=== PATIENT | female | born 1985 | race Caucasian/White ===

== ENCOUNTER → 2019-06-27 09:14 | Outpatient (CLI) | payer OTHER, SELFPAY ==
--- NOTE | 2019-06-27 09:15 | DI.US.S_ITS ---
PROCEDURE: US OB <= 14 WEEKS FETUS INDICATIONS: DATES OUTSIDE/PRIOR DATING DATA: Last menstrual period (LMP): 05/04/19. LMP-based estimated date of delivery (DEJA): 02/08/20. First dating scan (date and location): 06/27/19. Estimated date of delivery (DEJA) from first dating scan: 02/07/20. TECHNIQUE: Real-time scanning was performed of the fetus and maternal pelvic organs, with image documentation. Endovaginal scanning was also performed to better visualize the fetus and maternal ovaries. COMPARISON: None. FINDINGS: Embryo: Single living intrauterine gestation is identified measuring approximately 7 weeks and 6 days in sonographic gestational age. Haystack-rump length measures approximately 1.5 cm. heart rate measured 163 beats per minute. Normal appearance of the yolk sac. No perigestational hemorrhage identified. Measurement variability in dating: +/- 4 weeks by LMP, +/- 7 days by mean sac diameter (use before 6 weeks gestation if crown-rump length not able to be measured), +/- 5 days by crown-rump length (up to 8 weeks 6 days gestation), +/- 7 days by crown-rump length (up to 13 weeks 6 days gestation). Maternal organs: Right maternal ovary is unremarkable in appearance. Left maternal ovary contains a 2.5 cm corpus luteal cyst. There is also a 4.0 x 2.8 x 3.5 cm avascular cyst with diffuse low level internal echoes/debris. This may represent a mildly complicated cyst versus hemorrhagic cyst. Limited images through the kidneys demonstrate no hydronephrosis. IMPRESSION: 1. Single living intrauterine gestation with an estimated sonographic gestational age of approximately 7 weeks and 6 days. Recommend routine followup second trimester anatomic screening survey. 2. There is a 4.0 cm avascular cyst within the left ovary likely representing a complicated cyst versus hemorrhagic cyst. Attention can be made on followup imaging. Dictated by: David Pompa M.D. on 06/27/2019 at 11:13 Approved by: David Pompa M.D. on 06/27/2019 at 11:19
== END ==
PROVIDERS: Family Provider Family Medicine; PCP Family Medicine; Visit Provider Family Medicine
DX: Z34.81 Encounter for supervision of other normal pregnancy, first trimester (principal); Z3A.08 8 weeks gestation of pregnancy; Q50.1 Developmental ovarian cyst
CPT/HCPCS: 76801; 76817

== ENCOUNTER → 2019-07-11 12:20 | Outpatient (CLI) | payer OTHER, SELFPAY ==
[2019-07-11 13:00] LABS: Appearance Urine UA CLEAR; Bilirubin Urine UA NEGATIVE (NEGATIVE); Color Urine UA YELLOW; Glucose Urine UA NEGATIVE (Negative); Ketones Urine UA NEGATIVE (NEGATIVE); Leukocyte Esterase Urine UA NEGATIVE (NEGATIVE); Nitrite Urine UA NEGATIVE (Negative); Occult Blood Urine UA NEGATIVE (Negative); Protein Urine UA NEGATIVE (Negative); Urobilinogen Urine UA 0.2 E.U./dL (0.2); pH Urine UA 5.5 (4.5-8.0)
[2019-07-11 13:02] LABS: Add Manual Diff / Slide Review NO; Basophils Absolute Auto 0 /uL (0-100); Basophils Percent Auto 0.2 % (0-2); Eosinophils Absolute Auto 0 /uL (0-450); Eosinophils Percent Auto 0.4 % (2-4); Hematocrit 36.9 % (36-46); Hemoglobin 12.6 g/dL (12.0-16.0); Lymphocytes Absolute Auto 1300 /uL (1100-4500); Lymphocytes Percent Auto 13.6 % (25-40); Mean Corpuscular HGB Conc 34.3 % (30-36); Mean Corpuscular Hemoglobin 31.9 PG (26-34); Mean Corpuscular Volume 92.9 fL (80-100); Monocytes Absolute Auto 500 /uL (0-900); Neutrophils Absolute Auto 7600 /uL (1500-7000); Neutrophils Percent Auto 80.8 % (50-75); Platelet Count 202 X10^3/uL (150-400); Red Blood Cell Count 3.97 X10^6/uL (4.0-5.2); White Blood Cell Count 9.4 X10^3/uL (4.5-11.0)
[2019-07-11 15:43] LABS: Hepatitis B Surface Antigen NEGATIVE s/c (NEGATIVE); Rubella Antibody IgG > 350.0 IU/mL (>15)
[2019-07-11 16:00] LABS: Hep C Virus Ab w/Reflex Quant NEGATIVE s/c (NEGATIVE)
[2019-07-13 14:18] LABS: RPR Screen Nonreactive (Nonreactive)
== END ==
PROVIDERS: Family Provider Family Medicine; PCP Family Medicine; Visit Provider Family Medicine
DX: Z34.81 Encounter for supervision of other normal pregnancy, first trimester (principal)
CPT/HCPCS: 36415; 80055; 81003; 86787; 86803; 86850; 86900; 86901; 87077; 87086

== ENCOUNTER → 2019-09-30 14:49 | Outpatient (CLI) | payer OTHER, SELFPAY ==
--- NOTE | 2019-09-30 14:50 | DI.US.S_ITS ---
PROCEDURE: US OB >= 14 WEEKS FETUS INDICATIONS: ANATOMY OUTSIDE/PRIOR DATING DATA: Last menstrual period (LMP): 05/04/19. LMP-based estimated date of delivery (DEJA): 02/08/20. First dating scan (date and location): 06/27/19. Estimated date of delivery (DEJA) from first dating scan: 02/07/20. TECHNIQUE: Real-time scanning was performed of the fetus, with image documentation and biometric measurements. Endovaginal scanning: No COMPARISON: Merged with [facility], OB <= 14 WEEKS FETUS, 06/27/2019, 9:35. FINDINGS: General: A single living intrauterine gestation is present. Presentation: Breech. Placenta: Placental position is posterior, without previa. Prominent placental venous leg measuring 5.7 x 1.4 x 3.0 cm. Amniotic fluid index: 10.8 cm, normal range is 5-24 cm. heart rate: 150 beats per minute. Maternal cervical canal: 4.0 cm long. Normal lower limit is 2.5 cm. biometrics: Biparietal diameter: 20 weeks 4 days Head circumference: 21 weeks 3 days Abdominal circumference: 21 weeks Femur length: 21 weeks 3 days Estimated gestational age from initial scan: 21 weeks 3 days Composite gestational age from present scan: 21 weeks 3 days Estimated weight and percentile: 405 g; 32nd percentile Measurement variability for biometric dating: +/- 7 days from 14 weeks to 15 weeks 6 days gestation, +/- 10 days from 16 weeks to 21 weeks 6 days gestation, +/- 2 weeks from 22 weeks to 27 weeks 6 days gestation, +/- 3 weeks for 28 weeks gestation or later. weight reference: 4500 g or EFW >90/95% is considered macrosomia or large for gestational age. EFW <10% is small for gestational age. EFW 5% or less is considered intra-uterine growth restriction. Anatomic survey: Neuro: Ventricles are non-dilated at less than 10 mm. Cisterna magna is normal at 3-11 mm. Cerebellum is normal in size and morphology. Nuchal skin fold: Normal at less than 6 mm between 14-21 weeks gestational age. Face: Nose and lips, facial profile are normal. Spine: No evidence for spina bifida. Heart: 4-chambered heart is present, with normal ventricular outflow tracts. Diaphragm: Diaphragm is intact. Stomach: Left-sided stomach is present. Kidneys: No hydronephrosis. Normal is less than 5 mm in 2nd trimester, less than 7 mm in 3rd trimester. Cord: 3-vessel cord has orthotopic insertion. Bladder: Normal in size. Extremities: All 4 extremities identified. Simple left maternal ovarian cyst measuring 3.8 cm. IMPRESSION: 1. Single living IUP redemonstrated and interval growth is normal. 2. Normal anatomic survey. 3. Prominent placental venous manzo of no clinical concern. Dictated by: Rudi CHAN Interpreted: Delmar Carvajal MD on 09/30/2019 at 16:40 Approved by: Delmar Carvajal M.D. on 09/30/2019 at 17:19
== END ==
PROVIDERS: PCP Family Medicine; Visit Provider Family Medicine
DX: Z34.92 Encounter for supervision of normal pregnancy, unspecified, second trimester (principal); Z3A.21 21 weeks gestation of pregnancy
CPT/HCPCS: 76811

== ENCOUNTER → 2019-11-21 09:06 | Outpatient (CLI) | payer OTHER, SELFPAY ==
[2019-11-21 11:16] LABS: Hematocrit 31.8 % (36-46); Hemoglobin 11.2 g/dL (12.0-16.0)
[2019-11-21 11:20] LABS: GTT (PREG) 1 Hour PP 50gm Dose 101 mg/dL (76-139)
== END ==
PROVIDERS: PCP Family Medicine; Visit Provider Family Medicine
DX: Z3A.28 28 weeks gestation of pregnancy (principal)
CPT/HCPCS: 36415; 82950; 85014; 85018

== ENCOUNTER → 2020-01-13 11:56 | Outpatient (CLI) | payer OTHER, SELFPAY ==
[2020-01-14 15:23] LABS: Strep Grp B PCR POS for Grp B Strep
== END ==
PROVIDERS: PCP Family Medicine; Visit Provider Family Medicine
DX: Z34.90 Encounter for supervision of normal pregnancy, unspecified, unspecified trimester (principal); Z3A.36 36 weeks gestation of pregnancy
CPT/HCPCS: 87653

== ENCOUNTER 2020-02-15 01:09 | Inpatient (IN) | payer OTHER, SELFPAY ==
[2020-02-15 01:46] VITALS: BP 125/79
[2020-02-15 02:27] LABS: Add Manual Diff / Slide Review NO; Basophils Absolute Auto 0 /uL (0-100); Basophils Percent Auto 0.3 % (0-2); Eosinophils Absolute Auto 100 /uL (0-450); Eosinophils Percent Auto 0.6 % (2-4); Hematocrit 33.6 % (36-46); Hemoglobin 11.1 g/dL (12.0-16.0); Lymphocytes Absolute Auto 2300 /uL (1100-4500); Lymphocytes Percent Auto 17.5 % (25-40); Mean Corpuscular HGB Conc 32.9 % (30-36); Mean Corpuscular Hemoglobin 31.8 PG (26-34); Mean Corpuscular Volume 96.7 fL (80-100); Monocytes Absolute Auto 800 /uL (0-900); Monocytes Percent Auto 5.8 % (3-14); Neutrophils Absolute Auto 10000 /uL (1500-7000); Neutrophils Percent Auto 75.8 % (50-75); Platelet Count 202 X10^3/uL (150-400); Red Blood Cell Count 3.47 X10^6/uL (4.0-5.2); Red Cell Distribution Width 12.3 % (11.6-14.8); White Blood Cell Count 13.2 X10^3/uL (4.5-11.0)
[2020-02-15] MEDS: LACTATED RINGERS 1,000 ML 100 ML IV ×2 (02:35→10:21)
[2020-02-15] MEDS: PENICILLIN G POTASSIUM 5,000,000 UNIT in DEXTROSE 5% IN WATER 250 ML IV (02:35)
[2020-02-15] MEDS: PENICILLIN G POTASSIUM 3,000,000 UNIT/50 ML FROZ.PIGGY 100 UNIT IV ×2 (06:14→10:14)
--- NOTE | 2020-02-15 07:10 | PM.OBHP.1 ---
OB HPI Date/Time Date of admission: 02/15/20 Date Patient Seen: 02/15/20 Time Patient Seen: 07:05 History of Present Condition Chief complaint: LABOR : 2 Para: 1 Estimated Date of Delivery: 02/09/20 Estimated Gestational Age (weeks): 40w6d Narrative: Alesha Mcgee is a 34 year old at 40 weeks and 6 days gestation. She was get ruled for post-dates induction tomorrow. Patient arrived to the center in active labor. She states contractions picked up at about midnight. Reported good movement and denied vaginal bleeding or leaking of fluid. Good care with normal labs and ultrasounds. No complications this . History of Present care: good care, initiated at week # (10), number of visits (12) and pounds weight gain (35 lb) Dating criteria: LMP confirmed by 1st trimester US Ultrasounds: normal mid trimester US Obstetrical complications: none Medical complications: none Preadmission Labs Blood type: A (+) positive -: Antibody screen: negative, GBS status: positive, HBsAG: negative, HIV: negative and RPR/VDLR: negative -: Rubella: immune and Varicella: immune HCT: 36.9 Urine: Lactobacillus 1 hr GTT: 101 Prior (ies) History: 05/06/17 40 weeks gestation, 7 lb 6 oz female, Epidural Evaluation Evaluation Baseline heart rate: 120 Variability: Moderate (11-25) monitor accelerations: Present monitor decelerations: Absent Contraction Frequency (minutes): 3 Category of Tracing: I Cervical dilation (cm): 10 Cervical effacement (%): 100 station: 0 Laboratory results: Laboratory Tests 02/15/20 02/15/20 02:00 02:00 WBC 13.2 H RBC 3.47 L Hgb 11.1 L Hct 33.6 L MCV 96.7 MCH 31.8 MCHC 32.9 RDW 12.3 Plt Count 202 Neut % (Auto) 75.8 H Lymph % (Auto) 17.5 L [place] % (Auto) 5.8 Eos % (Auto) 0.6 L Baso % (Auto) 0.3 Neut # (Auto) 43033 H Lymph # (Auto) 2300 [place] # (Auto) 800 Eos # (Auto) 100 Baso # (Auto) 0 Blood Type A Positive Antibody Screen Negative PFSH Social History marital status: number of children: 1 household members: family lives independently: Yes education level: college occupational status: employed Smoking Status: Never smoker substance use type: does not use Meds Home Medications and Allergies Home Medications Medication Instructions Recorded Confirmed Type polyethylene glycol 3350 [Miralax] 17 gm PO QDAYP PRN #0 06/16/17 02/15/20 History hydrocortisone 2.5 % topical cream 1 applictn TOPICAL QDAYP PRN #30 08/12/19 02/15/20 Rx gram Allergies Allergy/AdvReac Type Severity Reaction Status Date / Time No Known Drug Allergies Allergy Verified 02/15/20 01:45 Exam Vital Signs (past 8 hours): Temperature 36.4? blood pressure 110/63 heart rate 63 Const General: healthy appearing and comfortable HENMT Head: normal to inspection Ears: hearing grossly normal bilaterally Nose: external nose normal Face and sinus: normal facial exam Mouth: oral mucosae normal Eyes General: appearance normal, both eyes and all related structures Neck Neck: normal visual inspection Resp Effort & Inspection: normal respiratory effort Cardio Rate: regular rate GI Other: Gravid External Female Exam: external appearance normal Manual OB Exam: dilated 10, effaced fully and station -1 and 0 Presentation: vertex Estimated Weight (lbs): 7 Amniotic Fluid: clear Back/Spine/Pelvis Back: normal to inspection Skin General: no rashes or lesions noted Extrem General: normal to inspection and no pedal edema Objective Labs Result Diagrams: 02/15/20 02:00 Labs: Laboratory Results - last 24 hr 02/15/20 02/15/20 02:00 02:00 WBC 13.2 H RBC 3.47 L Hgb 11.1 L Hct 33.6 L MCV 96.7 MCH 31.8 MCHC 32.9 RDW 12.3 Plt Count 202 Neut % (Auto) 75.8 H Lymph % (Auto) 17.5 L [place] % (Auto) 5.8 Eos % (Auto) 0.6 L Baso % (Auto) 0.3 Neut # (Auto) 54157 H Lymph # (Auto) 2300 [place] # (Auto) 800 Eos # (Auto) 100 Baso # (Auto) 0 Blood Type A Positive Antibody Screen Negative Assessment and Plan Assessment and Plan Assessment and Plan narrative: 34 year old at 40+6 weeks gestation in active labor. GBS positive and s/p 2 doses of penicillin. Comfortable with epidural Expectant management, anticipate vaginal delivery
--- NOTE | 2020-02-15 11:09 | PM.OBPRVD ---
Labor & Delivery Delivery date: 02/15/20 Intrapartal events: Ineffective Pushing (Maternal exhaustion) Delivery augmentation: rupture of membranes and pitocin (With second stage) Delivery monitor: external FHT Route of delivery: and vacuum extraction (Brought to perineum with vacuum then vacuum removed for ) L&D Laceration Description: Perineal - 2nd Degree and Vaginal - 1st Degree Delivery repair: vicryl Estimated blood loss (mL): 100 Anesthesia type: Epidural Narrative: Patient is a 34-year-old at 40 weeks and 6 days gestation who delivered via vacuum assisted vaginal delivery at 10:20 a.m. on 02/15/20. STAGE I: Labor Active labor began at midnight on 02/15/20. Patient presented in active labor and received an epidural with adequate pain control after the second epidural. heart tones were category 1 throughout stage I. Artificial rupture of membranes occurred at 7:14 a.m. with copious clear fluid. Patient was complete at 7:14 a.m.. She received to GBS prophylaxis throughout labor. STAGE II: Delivery Patient's epidural was quite dense so she had little sensation with pushing for the first hour and descent was slow. Dr. Eric, OBN, was consulted due to deep decelerations with pushing as well as maternal exhaustion with pushing and lack of descent. Ultimately the decision was made for vacuum assisted delivery due to maternal exhaustion. Dr. Eric applied the vacuum and brought infant's head to the perineum over 1 contraction. The vacuum was then removed. Patient went on to deliver over the next 2 contractions. Presentation was vertex and ROP. Infant was immediately placed on mother's abdomen. Cord was clamped and cut after 1 minutes delay. scores were 7 at one minute and 9 at five minutes. No resuscitation of the required beyond the usual drying and stimulating. was noted to have a large amount of swelling and bruising over the forehead which was present before the vacuum was applied. STAGE III: Placenta/Cord Placenta delivered at 10:23 a.m. after active management and appeared intact with a three-vessel cord. Pitocin bolus given after delivery of placenta. Fundus was firm it. A short second-degree perineal laceration was repaired in the usual fashion with good hemostasis. A first-degree vaginal laceration was repaired with good hemostasis as well. EBL: 100 mL. Needle and sponge counts were correct. The vagina was inspected and no items were left in situ. Patient was doing well with Sadia, her and at bedside. [place] Baby 1: gender: Female Presentation: vertex position: Right Occiput Posterior Placenta delivery description: Spontaneous cord vessel description: 3 Vessels score (1 min): 7 score (5 min): 9
[2020-02-15] MEDS: IBUPROFEN 600 MG TABLET PO ×2 (15:44→21:48)
[2020-02-15] MEDS: ACETAMINOPHEN 325 MG TABLET 650 MG PO ×2 (17:43→23:43)
--- NOTE | 2020-02-15 21:43 | PM.OBPRVD ---
Labor & Delivery Intrapartal events: Ineffective Pushing (Maternal exhaustion) Estimated blood loss (mL): 100 Anesthesia type: Epidural Narrative: See delivery note by Dr Sharma. I was called due to patient having severe decelerations while pushing in the 2nd stage. She had been pushing about 2-1/2 hours. On review she was having moderate decelerations and then had a severe deceleration with good recovery. When I arrived she did not have recurrence of the severe deceleration, was having some intermittent moderate decelerations and mild decelerations. FHR was 150s with moderate variability. On exam vertex was 1+ station, unclear presentation but appear to be OP and vertex somewhat asynclitic. Molding of the vertex was also noted. FHR was category 2, but since now without severe variable deceleration to moderate variability, allowed her to continue to push. She was pushing more effectively now with the epidural being less dense and bringing the vertex down well during the push. Over the next approximate 30 minutes she brought the vertex to 2+ station, with pushing head would come down to 3+. She was becoming exhausted and I offered vacuum assistance now since vertex now 2+ station, and since over 1-2 contractions FHR in 90-100s with slow recovery. However over the last few contraction she felt significant increased pressure and knowing the head was lower she desired to try little longer herself. She pushed 2-3 contractions herself and then decided she did desire vacuum assistance. Her bladder had already been sterilely drained by Dr. Sharma a few contractions prior. On repeat exam vertex palpated 2+ station, I felt she had rotated to TRACY at this time. A small abrasion was noted superiorly on the scalp, possibly from exams or spontaneously with the patient pushing. Molding also noted. Between contractions the flat kiwi was placed and with the next contraction with the patient pushing, vacuum assistance was given using the normal pressure, over 3 pushes without contraction. The vertex was brought through the labia, to near . Vacuum was removed. Over the next 2 contractions she pushed herself and brought the head to . I stepped aside and Dr Sharma delivered the , over an intact perineum, with the infant delivering from the ROP position. Anterior and posterior shoulders delivered with ease. was placed on the maternal abdomen and cried spontaneously. See remainder of delivery note for delivery of the placenta and perineal repair. Apgars were 7 and 9 at 1 and 5 minutes respectively. Baby 1: Infant gender: Female Presentation: vertex position: Right Occiput Posterior Placenta delivery description: Spontaneous cord vessel description: 3 Vessels score (1 min): 7 score (5 min): 9
[2020-02-16] MEDS: IBUPROFEN 600 MG TABLET PO ×2 (03:41→10:30)
[2020-02-16] MEDS: ACETAMINOPHEN 325 MG TABLET 650 MG PO ×2 (05:49→13:22)
[2020-02-16 06:20] LABS: Hematocrit 30.7 % (36-46); Hemoglobin 10.3 g/dL (12.0-16.0)
--- NOTE | 2020-02-16 09:04 | P.DS_ITS ---
Discharge Providers Provider Date of admission: 02/15/20 01:09 Discharge Date: 02/16/20 Primary care physician: Lorrie Sharma DO Consults: 02/16/20 10:57 Consult to General Milling Superintendent Routine Comment: Discharge provider: Lorrie Sharma DO Summary Hospital Course Date Patient Seen: 02/16/20 Time Patient Seen: 08:00 Hospital Course: Patient is a 34-year-old G2 now P2 after vacuum assisted vaginal delivery for maternal exhaustion during stage II as well as category 2 heart rate tracing. Patient arrived in active labor and received an epidural with adequate pain control. She received adequate GBS prophylaxis for GBS positivity. Labor progressed well until stage II when descent was slow due to suspected malposition and fetus developed deep decelerations with pushing. Dr. Eric was consulted and ultimately applied a kiwi vacuum which successfully brought down enough for mother to push effectively and delivery without further vacuum assistance. Please refer to delivery documentation. Both patient and did well after delivery. A second-degree perineal laceration and first-degree vaginal laceration were repaired in the usual fashion with good hemostasis. Patient had no complications . Breast- feeding was going well. She was eating, ambulating, voiding and passing flatus. Vaginal bleeding was light and pain well controlled with ibuprofen only. Patient and her were eager to return home with their . Patient was advised to call for fevers, severe pain or bleeding through more than a pad an hour. She will follow-up in 6 weeks for a visit or sooner if needed. Peripartum Data Delivery Method: Assisted Delivery (Vacuum assisted) Laceration description: Perineal - 2nd Degree complications: none 1: Gender: Female Disposition of : home Discharge Diagnosis (1) Vacuum-assisted vaginal delivery: Status: Acute (2) 40 weeks gestation of : Status: Acute Time Spent with Patient Time attestation: Total time spent providing and/or coordinating discharge services: Time spent: Less than 30 minutes Objective Labs Result Diagrams: 02/16/20 06:10 Labs: Laboratory Results - last 24 hr 02/16/20 06:10 Hgb 10.3 L Hct 30.7 L Exam Vital Signs (past 8 hours): Temperature 97.5? blood pressure 99/60 heart rate 61 respirations 16 Narrative Exam Narrative: General: Awake and alert, no acute distress. HEENT: NCAT, EOMI, moist oral mucosa CV: Regular rate and rhythm, no murmurs, rubs or gallops Lungs: CTAB, no wheezes, rales, or rhonchi Abdomen: Soft, nontender; bowel tones active; uterus firm 1 cm below umbilicus Extremities: Warm, no edema, 2+ pedal pulses bilaterally Discharge Plan Discharge orders & Medications Discharge Orders: Discharge (Order); Ordered 02/16/20 Ordered By: Lorrie Sharma Prescriptions: New ibuprofen 600 mg Tablet 600 mg PO Q6HR PRN (Reason: Pain, Mild (1-3)) Qty: 30 RF: 0 Continued hydrocortisone 2.5 % cream 1 applictn Topical QDAYP PRN (Reason: hemorrhoids) Qty: 30 RF: 1 polyethylene glycol 3350 [Miralax] 17 GM powder in packet 17 gm PO QDAYP PRN (Reason: Constipation) Qty: 0 RF: 0 Follow up/Referrals: Lorrie Sharma, [Primary Care Provider] - 6 Weeks (Please follow up with Dr. Sharma on Thursday for Sadia's appointment , at that time they will schedule you for a six week post follow-up appointment. Please call if you have questions/ concerns or need to reschedule.) Visit Report/Discharge Packet Stand Alone Forms: Discharge: Care Visit Report Forms: Patient Portal/API, Stroke Signs & Symptoms Discharge Data Primary Care Provider: Lorrie Sharma
[2020-02-16 11:15] VITALS: BP 99/65; PULSE 61; RESP 16; TEMP 36.4
== END 2020-02-16 13:30 | disposition home or self-care (01) | DRG 807 ==
PROVIDERS: Admitting Provider Family Medicine; PCP Family Medicine; Referring Provider Family Medicine; Visit Provider Family Medicine
DX: O48.0 Post-term pregnancy (principal); Z37.0 Single live birth; Z3A.40 40 weeks gestation of pregnancy; O99.824 Streptococcus B carrier state complicating childbirth; O75.81 Maternal exhaustion complicating labor and delivery; O70.1 Second degree perineal laceration during delivery; O70.0 First degree perineal laceration during delivery
CPT/HCPCS: 01967; 36415; 59050; 59410; 85014; 85018; 85025; 86850; 86900; 86901; G0379; J2540